=== PATIENT | male | born 1985 | race Caucasian/White ===

== ENCOUNTER 2023-07-14 13:28 | Emergency (ER) | payer SELFPAY, OTHER ==
[2023-07-14] MEDS ORDERED: Lidocaine 1% PF 5 ML VIAL ONE (13:37)
== END 2023-07-14 14:22 | disposition home or self-care (01) ==
LOC: BURERS 13:28
DX: S61.213A Laceration without foreign body of left middle finger without damage to nail, initial encounter (principal); X58.XXXA Exposure to other specified factors, initial encounter
CPT/HCPCS: 12001; 99282